=== PATIENT | female | born 1995 | race Hispanic/Latino ===

== ENCOUNTER 2017-12-23 03:15 | Inpatient (IN) | payer BC, OTHER ==
[~2017-12-23] VITALS: Ht 157.5 cm; Wt 66.0 kg
[2017-12-23] MEDS ORDERED: PRENATAL 19 TA1 EAC1 PO (05:52)
[2017-12-23] MEDS ORDERED: IRON325 M1 PO (05:53)
--- NOTE | 2017-12-23 09:11 | PR ---
[facility] [address] [facility] [place], [place] [address] Signed Progress Notes IP Datetime Report Generated by NABEEL: 12/23/2017 09:11 PROGRESS NOTES: [id number] Impression: Normal progression of labor Procedures: Artificial ROM; Sterile Vag Exam Plan: Continue present management Informed Consent Obtain: Vaginal Delivery; Risks, Benefits and Alternatives Discussed VITAL SIGNS: [id number] Vital Signs: Reviewed; Within Normal Limits EXAM: [id number] Dilatation: 5.0 Effacement: 90 Station: -2 Uterine Contractions: q 1 to 3 min MEMBRANES: [id number] Membrane Status: Intact ROM Note: AROM with small amount of clear fluid seen. Comments: Progressing. Will continue. Fetus A: [id number] FHR Baseline: 150 Variability: Minimal - Undetectable to <5bpm Accelerations: 15X15 Decelerations: None FHR Category: Category II Presentation: Vertex Comments on Fetus A: overall reassuring. Will continue close observation. Fetus B: [id number] Signing Physician: Yolande Miller MD Copies: ~ *Electronically Signed* 12/23/17 0911 YOLANDE MILLER MD PATIENT NAME: LAURA THOMSON PROGRESS NOTE DATE OF : 95 PHYSICIAN: YOLANDE MILLER MD RPT #: [id number] REPORT IS CONFIDENTIAL AND NOT TO BE RELEASED WITHOUT AUTHORIZATION
--- NOTE | 2017-12-24 09:21 | PR ---
[facility] [address] [facility] [place] [address] Signed PP Progress Notes Datetime Report Generated by CPN: 12/24/2017 09:21 SUBJECTIVE: [id number] Pain: Within normal limits Nausea/Vomiting: Denies Vital Signs: [id number] Vital Signs: Reviewed; Within Normal Limits EXAM: [id number] Cardiovascular: Not Done Respiratory: Not Done Abdomen/Uterus: Abnormal Lochia: Normal Vulva/Perineum: Not Done Breasts: Not Done CVA Tenderness: Not Done Extremities: Normal Incision: Not Applicable Progress: Abnormal Exam Comments: Fundus firm, NT @ U-1. IMPRESSION/PLAN/PROCEDURES: [id number] Impression: Normal progression Plan: consult Progress Notes: Doing well. Signing Physician: Yolande Miller MD Copies: ~ *Electronically Signed* 12/24/17920 YOLANDE MILLER MD PATIENT NAME: LAURA THOMSON PROGRESS NOTE DATE OF : 95 PHYSICIAN: YOLANDE MILLER MD RPT #: [id number] REPORT IS CONFIDENTIAL AND NOT TO BE RELEASED WITHOUT AUTHORIZATION
--- NOTE | 2017-12-25 08:54 | PR ---
[facility] [address] [facility] [place], [place] [address] Signed PP Progress Notes Datetime Report Generated by CPN: 12/25/2017 08:54 SUBJECTIVE: [id number] Pain: Within normal limits Nausea/Vomiting: Denies Vital Signs: [id number] Vital Signs: Reviewed; Within Normal Limits EXAM: [id number] Cardiovascular: Not Done Respiratory: Not Done Abdomen/Uterus: Abnormal Lochia: Normal Vulva/Perineum: Not Done Breasts: Not Done CVA Tenderness: Not Done Extremities: Normal Incision: Not Applicable Progress: Not Applicable Exam Comments: Fundus firm, NT @ U-1. IMPRESSION/PLAN/PROCEDURES: [id number] Impression: Normal progression Plan: Discharge Procedures: Varicella Progress Notes: Doing well. She is ready for D/C. Signing Physician: Yolande Miller MD Copies: ~ *Electronically Signed* 12/25/17 0854 YOLANDE MILLER MD PATIENT NAME: LAURA THOMSON PROGRESS NOTE DATE OF : 95 PHYSICIAN: YOLANDE MILLER MD RPT #: [id number] REPORT IS CONFIDENTIAL AND NOT TO BE RELEASED WITHOUT AUTHORIZATION
== END 2017-12-25 12:10 | disposition home or self-care (01) | DRG 775 ==
LOC: FBCO 03:15 → FBC 05:03 → FBCO 12-24 11:01 → FBC 12-25 12:10
PROVIDERS: ADMIT Obstetrics & Gynecology
PROC: 10E0XZZ Delivery of Products of Conception, External Approach (ICD-10-PCS; principal; 2017-12-23)
PROC: 0KQM0ZZ Repair Perineum Muscle, Open Approach (ICD-10-PCS; 2017-12-23)
PROC: 10E0XZZ Delivery of Products of Conception, External Approach (ICD-10-PCS; 2017-12-23)
PROC: 10907ZC Drainage of Amniotic Fluid, Therapeutic from Products of Conception, Via Natural or Artificial Opening (ICD-10-PCS; 2017-12-23)
DX: O99.824 Streptococcus B carrier state complicating childbirth (principal); Z3A.39 39 weeks gestation of pregnancy; Z37.0 Single live birth; O69.81X0 Labor and delivery complicated by cord around neck, without compression, not applicable or unspecified; O75.89 Other specified complications of labor and delivery; O70.1 Second degree perineal laceration during delivery
CPT/HCPCS: 36415; 85027; 90716; J2210; J2540; J2590; J7120